=== PATIENT | male | born 1980 | race Caucasian/White ===

== ENCOUNTER → 2022-04-30 | Outpatient (CLI) | payer OTHER | LOC: M RAD 14:34 | PROVIDERS: ATTEND Physician Assistant | DX: J32.8 Other chronic sinusitis (principal) ==

== ENCOUNTER → 2024-09-13 | Outpatient (REF) | payer OTHER | LOC: M SFHCDERM 13:20 | PROVIDERS: ATTEND Physician Assistant | DX: D23.9 Other benign neoplasm of skin, unspecified (principal) ==